=== PATIENT | male | born 1950 | race Two or more races ===

== ENCOUNTER 2020-08-08 14:52 | Emergency (ER) | payer MEDICARE, OTHER ==
[~2020-08-08] VITALS: Ht 167.6 cm; Wt 78.9 kg
--- NOTE | 2020-08-08 15:36 | NUR ---
PT W RLL MASS AND MASS NEAR LIVER SUSP FOR METASTASIS, WILL BE ADM FOR FUTHER EVAL, SAHM IN ROOM, PT AND DAUGHTER AWARE AND AGREE. PLAN BIOPSY, LABS, PIV.
[2020-08-08] MEDS ORDERED: SODIUM CHLORIDE FLUSH 10ML SYR IVF PRN (16:30)
--- NOTE | 2020-08-08 16:45 | NUR ---
PIV/LABS PER ORDER BUT HOSPITLAIST IN ROOM AND PT TBDC BC NO BIOPSIES ON WEEEND HERE.
[2020-08-08] MEDS ORDERED: SODIUM CHLORIDE FLUSH 10ML SYR IVF ONE (17:00)
[2020-08-08 17:24] LABS: ALBUMIN 1.8 g/dL (3.4-5.0); ANION GAP 7 mmol/L (5-15); CHLORIDE 102 mmol/L (98-107)
[2020-08-08 17:25] LABS: BASOPHILS % (AUTO) 0 % (0-1); EOSINOPHILS % (AUTO) 0 % (1-7); LYMPHOCYTES % (AUTO) 7 % (22-44); MEAN CORPUSCULAR HEMOGLOBIN 32.8 pg (27.5-34.5); MEAN CORPUSCULAR HGB CONC 33.8 g/dL (33.2-36.2); MEAN PLATELET VOLUME 8.6 fL (7.4-10.4); MONOCYTES % (AUTO) 9 % (2-9); NEUTROPHILS % (AUTO) 84 % (42-75); PLATELET COUNT 146 x10^3/uL (130-400); RED BLOOD COUNT 4.31 x10^6/uL (4.38-5.82); RED CELL DISTRIBUTION WIDTH 15.2 % (9.4-14.8)
[2020-08-08 17:26] LABS: INTERNATIONAL NORMALIZED RATIO 1.96 (0.93-1.1); PROTHROMBIN TIME 20.6 Seconds (9.6-11.5)
[2020-08-08 17:28] LABS: ALANINE AMINOTRANSFERASE 31 U/L (12-78); ALKALINE PHOSPHATASE 276 U/L (45-117); BILIRUBIN,TOTAL 13.6 mg/dL (0.2-1.0); CREATININE 0.89 mg/dL (0.7-1.3); TOTAL PROTEIN 6.6 g/dL (6.4-8.2)
--- NOTE | 2020-08-08 17:41 | NUR ---
LABS IN PROG, PLAN FOR DC AFTER.
[2020-08-08 17:42] VITALS: BP 131/84
[2020-08-08 17:57] LABS: MD SCAN
[2020-08-14] MEDS ORDERED: METF10007 PO (13:08)
[2020-08-14] MEDS ORDERED: BICT1TAB PO (13:12)
[2020-08-14] MEDS ORDERED: LISI-167 PO (13:13)
[2020-08-14] MEDS ORDERED: ATOR20TA86 PO (13:13)
[2020-08-14] MEDS ORDERED: GLIP5TAB10 PO (13:14)
== END 2020-08-08 18:09 | disposition home or self-care (01) ==
LOC: ED 15:21 → UNDOADMIN 16:37 → EDIP 16:37
DX: C78.6 Secondary malignant neoplasm of retroperitoneum and peritoneum (principal); R59.1 Generalized enlarged lymph nodes; R17 Unspecified jaundice; R94.31 Abnormal electrocardiogram [ECG] [EKG]
CPT/HCPCS: 36415; 80053; 83690; 85025; 85610; 85730; 93005; 99284; 99285